=== PATIENT | female | born 1985 | race Caucasian/White ===

== ENCOUNTER 2016-08-27 06:58 | Inpatient (IN) ==
[2016-08-27 07:48] LABS: URINE SOURCE VOIDED
[2016-08-27 07:52] LABS: BILIRUBIN URINE NEGATIVE (NEGATIVE); BLOOD URINE 4+ (NEGATIVE); CLARITY SL. CLOUDY (CLEAR); COLOR YELLOW; GLUCOSE URINE NEGATIVE (NEGATIVE); LEUKOCYTES URINE TRACE (NEGATIVE); NITRITE URINE NEGATIVE (NEGATIVE); PROTEIN URINE TRACE mg/dL (NEGATIVE); UROBILINOGEN URINE NORMAL
[2016-08-27] MEDS ORDERED: ZOFRAN IV PRN (14:31)
[2016-08-27] MEDS ORDERED: KEFZOL 1 GM/D5W 1 GM/50 ML IVPB IV PRN (14:31)
[2016-08-27] MEDS ORDERED: STADOL IV PRN (14:31)
[2016-08-27] MEDS ORDERED: PEPCID PO PRN (14:31)
[2016-08-27] MEDS ORDERED: LR 500 ML IV ONE (14:31)
[2016-08-27] MEDS ORDERED: PITOCIN 30 UNITS/LR 30 UNITS/500 ML IV.SOLN IV SCH (14:31)
[2016-08-27] MEDS ORDERED: PEPCID PO ONE (14:31)
[2016-08-27] MEDS ORDERED: TYLENOL PO PRN (14:31)
[2016-08-27] MEDS ORDERED: REGLAN PO ONE (14:31)
[2016-08-27] MEDS ORDERED: PEPCID IV PRN (14:31)
[2016-08-27] MEDS: LR 1,000 ML IV SCH (14:35)
[2016-08-27] MEDS ORDERED: AMPICILLIN 2 GM/NS 2 GM/100 ML IVPB ONE (14:43)
[2016-08-27] MEDS ORDERED: SODIUM CHLORIDE 0.9% INJ SCH (14:45)
[2016-08-27 14:52] LABS: MANUAL DIFF NEEDED? NO
[2016-08-27 14:57] LABS: BASO% 0.1 % (0.0-0.8); EOS# 0.01 X1000 (0.0-0.7); EOS% 0.1 % (0.0-10.0); HEMOGLOBIN 12.5 g/dL (12.0-16.0); IMM GRAN# 0.04 X1000 (0.0-0.04); IMM GRAN% 0.4 % (0.0-0.5); LYMPH# 1.61 X1000 (1.2-3.4); LYMPH% 14.4 % (20.5-51.1); MCH 31.6 PG (27-31); MCHC 33.8 g/dL (33-37); MCV 93.4 FL (81-99); MONO# 0.53 X1000 (0.11-0.59); MONO% 4.7 % (1.7-9.3); MPV 11.2 FL (7.4-10.4); NEUT% 80.3 % (42.2-75.2); PLT 155 X1000 (130-400); RBC 3.96 XMIL (4.2-5.4)
[2016-08-27] MEDS ORDERED: FENTANYL-BUPIV-NS 2 MCG-0.1% 200 ML EPIDURAL PRN (16:14)
[2016-08-27] MEDS ORDERED: MARCAINE 0.25% PF ONE ×2 (16:45→22:43)
[2016-08-27] MEDS: AMPICILLIN 1 GM/NS 1 GM/50 ML IVPB IV SCH ×2 (18:55→23:00)
[2016-08-27] MEDS ORDERED: LOPRESSOR PO ONE (22:03)
[2016-08-27] MEDS ORDERED: MARCAINE 0.5% PF ONE (22:42)
[2016-08-27] MEDS: FENTANYL ONE (22:45)
[2016-08-27] MEDS ORDERED: XYLOCAINE-MPF 1% ONE (23:30)
[2016-08-27] MEDS ORDERED: MINERAL OIL ONE (23:31)
[2016-08-27] MEDS ORDERED: XYLOCAINE-MPF 1% INJ ONE (23:54)
[2016-08-27] MEDS ORDERED: MINERAL OIL TOP ONE (23:56)
[2016-08-28] MEDS ORDERED: NESACAINE-MPF 3% ONE (00:31)
[2016-08-28] MEDS: FENTANYL ONE (00:45)
[2016-08-28] MEDS: LR 1,000 ML IV SCH ×2 (02:45→06:53)
[2016-08-28] MEDS: AMPICILLIN 1 GM/NS 1 GM/50 ML IVPB IV SCH (03:09)
[2016-08-28] MEDS ORDERED: MINERAL OIL PO PRN (04:33)
[2016-08-28] MEDS ORDERED: HYDROXYZINE PO PRN (04:33)
[2016-08-28] MEDS ORDERED: AMBIEN PO PRN (04:33)
[2016-08-28] MEDS ORDERED: PERI MEDS (DERMOPLAST/NUPERCAINAL/TUCKS) MISC PRN (04:33)
[2016-08-28] MEDS ORDERED: BENADRYL IV PRN (04:33)
[2016-08-28] MEDS ORDERED: PITOCIN 20 UNITS/LR 20 UNITS/1,000 ML IV.SOLN IV SCH (04:33)
[2016-08-28] MEDS ORDERED: NORCO-10 PO PRN (04:33)
[2016-08-28] MEDS ORDERED: BENADRYL PO PRN (04:33)
[2016-08-28] MEDS ORDERED: PITOCIN 30 UNITS/LR 30 UNITS/500 ML IV.SOLN IV ONE (04:33)
[2016-08-28] MEDS ORDERED: M-M-R II VACCINE SUBQ ONE (04:33)
[2016-08-28] MEDS ORDERED: HYDROXYZINE IM PRN (04:33)
[2016-08-28] MEDS ORDERED: BOOSTRIX VACCINE IM ONE (04:33)
[2016-08-28] MEDS ORDERED: XYLOCAINE-MPF 1% INJ PRN (04:33)
[2016-08-28] MEDS ORDERED: PITOCIN IM PRN (04:33)
[2016-08-28] MEDS ORDERED: CYTOTEC PO PRN (04:33)
[2016-08-28] MEDS ORDERED: NORCO-5 PO PRN (04:33)
--- NOTE | 2016-08-28 05:05 | OPERATIVE NOTE ---
PROCEDURE DATE: 08/28/2016 PROCEDURE: The patient underwent sterile controlled spontaneous vaginal delivery of a viable female weighing 6 pounds 8 ounces with 's of 9 and 10. Nuchal x2 reduced at the perineum. No dystocia. Cord doubly clamped and cut. Placenta delivered spontaneously and intact. Uterus firm with Pitocin and massage. Uterus, cervix and vagina explored. The patient with a history of prior 4th degree tear and approximately 1.5 cm purulent filled cyst noted at prior episiotomy site with a rupture of cyst following delivery. Cyst wall was dissected out. The episiotomy site then reapproximated using 3-0 chromic in the usual fashion and hemostatic after. ESTIMATED BLOOD LOSS: 250 mL. COMPLICATIONS: None. COUNTS: Correct. cc: Hilary Matthews MD
[2016-08-28] MEDS: MOTRIN PO PRN ×2 (08:13→16:15)
[2016-08-28] MEDS: LOPRESSOR PO SCH (09:46)
[2016-08-28] MEDS: KEFLEX PO SCH ×3 (09:47→21:57)
[2016-08-28] MEDS: PERICOLACE PO SCH ×2 (19:53→20:37)
[2016-08-29 06:59] LABS: HEMATOCRIT 29.8 % (37.0-47.0); HEMOGLOBIN 9.7 g/dL (12.0-16.0); MCH 31.1 PG (27-31); MCHC 32.6 g/dL (33-37); MCV 95.5 FL (81-99); MPV 11.8 FL (7.4-10.4); RBC 3.12 XMIL (4.2-5.4)
[2016-08-29] MEDS: LOPRESSOR PO SCH (08:57)
[2016-08-29] MEDS: KEFLEX PO SCH ×3 (08:57→21:36)
[2016-08-29] MEDS ORDERED: BISMATROL PO ONE (14:27)
[2016-08-29] MEDS: MOTRIN PO PRN (19:50)
[2016-08-29] MEDS: PERICOLACE PO SCH (21:36)
[2016-08-30] MEDS: KEFLEX PO SCH (09:23)
[2016-08-30] MEDS: LOPRESSOR PO SCH (09:24)
[2016-08-30 09:44] VITALS: BP 130/84
== END 2016-08-30 10:55 | disposition home or self-care (01) ==
LOC: P.OPLD 06:58 → P.LD 07:04
PROVIDERS: ADMIT Obstetrics & Gynecology; ATTEND Obstetrics & Gynecology